=== PATIENT | male | born 1955 | race African-American/Black ===

== ENCOUNTER → 2019-04-18 | Outpatient (CLI) | payer OTHER ==
--- NOTE | 2019-04-18 15:27 | KCIC ---
EXAM: Right knee, 3 views. HISTORY: Pain and swelling. Hyperextension. COMPARISON: None. FINDINGS: 3 views of the right knee are obtained. There is no fracture, dislocation or subluxation. There is no joint effusion. There is an intra-articular osteophyte or joint loose body superior to the anterior tibial plateau in the lateral projection. IMPRESSION: 1. No acute osseous finding. 2. Suspected osteophyte or joint loose body along the anterior tibial plateau in the lateral projection. Electronically signed by: Lani Pablo MD (04/18/2019 3:24 PM) [place] [id number]
== END | disposition home or self-care (01) ==
LOC: KCIC 13:34
PROVIDERS: ATTEND Nurse Practitioner Gerontology
DX: M25.561 Pain in right knee (principal); I10 Essential (primary) hypertension
CPT/HCPCS: 73562